=== PATIENT | female | born 1970 | race African-American/Black ===

== ENCOUNTER 2022-07-10 15:56 | Emergency (ER) | payer OTHER | END 2022-07-10 17:30 | disposition home or self-care (01) | LOC: ERS 15:56 | DX: K04.7 Periapical abscess without sinus (principal); K02.9 Dental caries, unspecified; K03.81 Cracked tooth; F17.210 Nicotine dependence, cigarettes, uncomplicated | CPT/HCPCS: 99282 ==

== ENCOUNTER 2023-04-11 14:22 | Outpatient (CLI) | payer BC, OTHER | END 2023-04-11 14:23 | disposition home or self-care (01) | LOC: BICMAMMO 14:22 | PROVIDERS: ATTEND Nurse Practitioner Family | DX: Z12.31 Encounter for screening mammogram for malignant neoplasm of breast (principal) | CPT/HCPCS: 77067 ==

== ENCOUNTER 2023-09-10 15:16 | Emergency (ER) | payer BC, OTHER ==
[2023-09-10] MEDS ORDERED: Cyclobenzaprine 10 MG TAB ONE (16:29)
[2023-09-10] MEDS ORDERED: Ketorolac Tromethamine 30 MG (1 mL) VIAL ONE (16:29)
[2023-09-10] MEDS ORDERED: Lidocaine 4% Patch TD SCH (16:45)
[2023-09-10 18:25] LABS: #Eosinphils 0.1 thou/uL (0.0-0.7); #Monocytes 0.5 thou/uL (0.11-0.59); %Basophils 0.2 % (0.0-1.0); %Eosinophils 1.8 % (0.0-10.0); %Lymphocytes 29.7 % (21.0-51.0); %Monocytes 7.8 % (0.0-10.0); %Neutrophils 60.2 % (42.0-75.0); Hematocrit 31.6 % (36.0-47.0); Hemoglobin 11.8 g/dL (12.0-16.0); Mean Corpuscular HGB CONC 37.3 g/dL (32.0-36.0); Mean Corpuscular Hemoglobin 36.3 pg (27.0-31.0); Mean Corpuscular Volume 97.2 fl (78.0-98.0); Mean Platelet Volume 10.8 fL (7.4-10.4); Platelet Count 218 10x3/uL (130-400); RBC Distribution Width 15.6 % (11.5-14.5); Red Blood Cell (RBC) Count 3.25 mill/uL (4.20-5.40); White Blood Cell (WBC) Count 6.6 10x3/uL (4.8-10.8)
[2023-09-10 18:48] LABS: ALT (SGPT) 11 U/L (8-55); AST (SGOT) 20 U/L (5-34); Albumin 4.2 g/dL (3.5-5.0); Alkaline Phosphatase 75 U/L (40-110); Anion Gap 9 mmol/L (10-20); BUN (Urea Nitrogen) 9 mg/dL (9.8-20.1); Bilirubin, Total 1.2 mg/dL (0.2-1.2); Calc. Creatinine Clearance 0 mL/min (70-130); Calcium 9.6 mg/dL (7.8-10.44); Carbon Dioxide 24 mmol/L (22-29); Chloride 105 mmol/L (98-107); Estimated GFR 88; Globulin 2.6 g/dL (2.4-3.5); Glucose 97 mg/dL (70-105); Potassium 4.3 mmol/L (3.5-5.1); Protein, Total 6.8 g/dL (6.0-8.3); Sodium 134 mmol/L (136-145)
[2023-09-10 18:52] LABS: Troponin I Less than 0.010 ng/mL (< 0.028)
[2023-09-11] MEDS ORDERED: Transdermal Patch Removal TOP SCH (05:00)
== END 2023-09-10 19:22 | disposition home or self-care (01) ==
LOC: ERS 15:16
DX: G56.02 Carpal tunnel syndrome, left upper limb (principal); F17.210 Nicotine dependence, cigarettes, uncomplicated
CPT/HCPCS: 71045; 80053; 84484; 85025; 93005; 96372; J1885